=== PATIENT | female | born 1985 | race Caucasian/White ===

== ENCOUNTER 2017-02-10 04:36 | Emergency (ER) | payer OTHER ==
[~2017-02-10] VITALS: Ht 170.2 cm; Wt 65.0 kg
[2017-02-10 04:38] VITALS: BP 135/76; PULSE 110; RESP 20; TEMP 97.7; O2SAT 98
[2017-02-10] MEDS ORDERED: SODIUM CHLOR 0.9% 1000 ML INJ 1,000 ML IV SCH (05:01)
[2017-02-10 05:10] VITALS: O2SAT 98
[2017-02-10] MEDS ORDERED: SODIUM CHLOR 0.9% 1000 ML INJ 1,000 ML IV ONE (05:15)
[2017-02-10] MEDS ORDERED: SODIUM CHLORIDE 0.9% FLUSH 10 ML FLUSH IV FLUSH PRN (05:15)
[2017-02-10] MEDS ORDERED: ONDANSETRON HCL 4 MG/2 ML VIAL IVP ONE (05:15)
[2017-02-10] MEDS ORDERED: ZOFR8TAB4 SL (05:34)
--- NOTE | 2017-02-10 05:34 | PD ---
HPI Chief Complaint: GI Complaint Time Seen by Provider: 05:01 Travel History International Travel<30 days: No Contact w/Intl Traveler<30days: No Traveled to known affect area: No History of Present Illness HPI Patient is a healthy 32-year-old female presents emergency department with complaint of vomiting. Patient states that she was drinking heavily 24 hours ago for her birthday. Since, she has been nauseous and vomiting. She notes decreased urinary output prompting her ER visit. No associated diarrhea, abdominal pain. No hematemesis. No fevers or chills. No recent travel or sick contacts. PFSH Past Medical History Medical History: Denies Significant Hx Influenza Vaccination: No ?: Unknown LMP: IUD Past Surgical History Other Surgery: Yes (breast augmentation ) Social History Alcohol Use: Yes Tobacco Use: No Substance Use: No Allergies-Medications (Allergen,Severity, Reaction): Coded Allergies: No Known Allergies (Unverified , 02/10/17) Reported Meds & Prescriptions Reported Meds & Active Scripts Active Zofran Odt (Ondansetron Odt) 8 Mg Tab 8 Mg SL Q8H PRN Review of Systems Except as stated in HPI: all other systems reviewed are Neg Physical Exam Narrative GENERAL: Well-appearing female in no acute distress SKIN: Focused skin assessment warm/dry. HEAD: Normocephalic. EYES: No scleral icterus. No injection or drainage. ENT: Mucous membranes pink and moist. NECK: Supple CARDIOVASCULAR: Mild tachycardia with heart rate in the 110s. RESPIRATORY: No accessory muscle use. GASTROINTESTINAL: Abdomen soft, non-tender, nondistended. MUSCULOSKELETAL normal gait NEUROLOGICAL: Awake and alert. Normal speech. PSYCHIATRIC: Appropriate mood and affect; insight and judgment normal. Data Data Last Documented VS Vital Signs Date Time Temp Pulse Resp B/P Pulse Ox O2 Delivery O2 Flow Rate FiO2 02/10/17 05:42 90 02/10/17 05:10 98 Room Air 02/10/17 04:38 97.7 20 135/76 Orders Ed Urine Pregnancytest Poc (02/10/17 04:47) Iv Access Insert/Monitor (02/10/17 05:01) Oximetry (02/10/17 05:01) Ondansetron Inj (Zofran Inj) (02/10/17 05:15) Sodium Chlor 0.9% 1000 Ml Inj (Ns 1000 M (02/10/17 05:01) Sodium Chloride 0.9% Flush (Ns Flush) (02/10/17 05:15) Sodium Chlor 0.9% 1000 Ml Inj (Ns 1000 M (02/10/17 05:15) Ondansetron Inj (Zofran Inj) (02/10/17 05:45) Diphenhydramine Inj (Benadryl Inj) (02/10/17 06:15) Metoclopramide Inj (Reglan Inj) (02/10/17 06:15) MDM Medical Decision Making Medical Screen Exam Complete: Yes Emergency Medical Condition: Yes Medical Record Reviewed: Yes Differential Diagnosis 5-year-old female here with complaint of 24 hours of nausea and vomiting after drinking heavily to celebrate her birthday. Differential includes gastritis, dehydration, electrolyte abnormality, . Abdominal examination is benign making peritoneal pathology unlikely. Narrative Course Patient placed on monitor, IV established. Urine test negative. Given 2 L normal saline bolus, 8 mg Zofran. Heart rate improved. Patient able to tolerate liquids but still quite nauseous. Given Benadryl, Reglan. Diagnosis Primary Impression: Alcoholic gastritis Qualified Code: K29.20 - Acute alcoholic gastritis without hemorrhage Referrals: Primary Care Physician as needed Additional Instructions: Nausea medications as needed. Avoid alcohol. Med/Other Pt SpecificInfo: Prescription(s) given Scripts Ondansetron Odt (Zofran Odt)8 Mg Tab8 Mg SL Q8H PRN (NAUSEA OR VOMITING) #10 TAB Ref 0 Prov:Delilah Tinajero MD 02/10/17 Disposition: 01 DISCHARGE HOME Condition: Stable Delilah Tinajero MD Feb 10, 2017 05:34
[2017-02-10 05:42] VITALS: PULSE 90
[2017-02-10] MEDS ORDERED: ONDANSETRON HCL 4 MG/2 ML VIAL IV PUSH ONE (05:45)
[2017-02-10] MEDS ORDERED: diphenhydrAMINE HCL 50 MG/ML VIAL IVP ONE (06:15)
[2017-02-10] MEDS ORDERED: METOCLOPRAMIDE HCL 10 MG/2 ML VIAL IVP ONE (06:15)
== END 2017-02-10 06:58 | disposition home or self-care (01) ==
LOC: NEPE 04:36
DX: K29.20 Alcoholic gastritis without bleeding (principal)
CPT/HCPCS: 84703; 96361; 96374; 96375; 96376; 99283; J1200; J2405; J2765; J7030